=== PATIENT | male | born 1960 | race Caucasian/White ===

== ENCOUNTER 2016-02-24 09:30 | Emergency (ER) | payer OTHER ==
[~2016-02-24] VITALS: Ht 188 cm; Wt 120.0 kg
[~2016-02-24 09:30] MED LIST: AMIT50 PO; ASPI81TA82 PO; CHOL1CAP6 PO; EFFE150C PO; FERR324T4 PO; GABA300C3 PO; GLUC1000 PO; LANTUS2P SQ; MAGN400 PO; METO25 PO; NOVOLOGP2 SQ; PETR30T TOP; PROT40TA PO; ROBA750T3 PO; SIMV40 PO; WAL-10TA2 PO
[2016-02-24 09:31] VITALS: BP 139/73; PULSE 119; RESP 15; TEMP 98.1; O2SAT 98
--- NOTE | 2016-02-24 10:04 | PD ---
HPI Chief Complaint: Injury Time Seen by Provider: 09:57 Travel History International Travel<30 days: No Contact w/Intl Traveler<30days: No Traveled to known affect area: No History of Present Illness HPI 56-year-old male with history of multiple medical issues, presents to the ER today because he states that his leg gave out on him after he stood up after a long period of sitting, and he fell to his right knee, is here complaining of right knee pains. He denies any chest pains, shortness of breath, head injury, or any other injuries. He states that his right knee does hurt some now. Modifying Factors: None Associated Signs & Symptoms: Right knee injury Risk Factors: None PFSH Past Medical History Hx Anticoagulant Therapy: Yes (ASPIRIN) Anemia: Yes Arthritis: Yes Autoimmune Disease: No Blood Disorders: No Anxiety: No Depression: No Heart Rhythm Problems: Yes (A-fib ) Cancer: Yes (colon cancer- resection) Cardiac Catheterization: Yes (No stent placement ) Cardiovascular Problems: Yes High Cholesterol: Yes Chemotherapy: No Chest Pain: Yes Congestive Heart Failure: No Cerebrovascular Accident: No Cystic Fibrosis: No Diabetes: Yes Diminished Hearing: No Endocrine: Yes Genitourinary: No Hypertension: No Immune Disorder: No Implanted Vascular Access Dvce: No Insomnia: Yes Musculoskeletal: Yes (arthritis) Neurologic: No Psychiatric: No Reproductive: No Respiratory: Yes Integumentary: Yes (PSORIASIS) Radiation Therapy: No Sleep Apnea: Yes (CPAP uses nightly) Thyroid Disease: No Past Surgical History Abdominal Surgery: Yes (COLON RESECTION) Cardiac Surgery: Yes (cardiac cath no stents) Coronary Artery Bypass Graft: No Ear Surgery: No Endocrine Surgery: No Eye Surgery: No Genitourinary Surgery: No Oral Surgery: Yes (tonsillectomy) Thoracic Surgery: No Tonsillectomy: Yes Other Surgery: Yes (DEVIATED SEPTUM) Social History Alcohol Use: Yes (socially) Tobacco Use: No Substance Use: No Allergies-Medications (Allergen,Severity, Reaction): Coded Allergies: No Known Allergies (Unverified , 02/24/16) Reported Meds & Prescriptions Reported Meds & Active Scripts Active Reported Effexor XR 24 HR (Venlafaxine HCl) 150 Mg Cap 150 Mg PO DAILY Simvastatin 40 Mg Tab 40 Mg PO HS Protonix (Pantoprazole Sodium) 40 Mg Tab 40 Mg PO DAILY Metoprolol Tartrate 25 Mg Tab 25 Mg PO BID Magnesium Oxide 400 Mg Cap PO BID Metformin (Metformin HCl) 1,000 Mg Tab 1,000 Mg PO BID With meals Lantus Inj (Insulin Glargine) 100 Unit/Ml Inj Novolog Inj (Insulin Aspart) 100 Unit/Ml Inj Gabapentin 800 Mg Tab 900 Mg PO TID Ferrous Sulfate 325 Mg Tab 325 Mg PO BID Elavil (Amitriptyline HCl) 25 Mg Tab D3 (Cholecalciferol) 2,000 Unit Tab 3,000 PO DAILY Aspir-81 (Aspirin) 81 Mg Tabdr Review of Systems Except as stated in HPI: all other systems reviewed are Neg Physical Exam Narrative GENERAL: Well-nourished, well-developed middle age white male patient who walks with a cane, in no acute distress, awake and oriented 3. SKIN: Warm and dry. HEAD: Normocephalic. EYES: No scleral icterus. No injection or drainage. NECK: Supple, trachea midline. CARDIOVASCULAR: Regular rate and rhythm without murmurs, gallops, or rubs. RESPIRATORY: Breath sounds equal bilaterally. No accessory muscle use. GASTROINTESTINAL: Abdomen soft, non-tender, nondistended. MUSCULOSKELETAL: No cyanosis, or edema. BACK: Nontender without obvious deformity. No CVA tenderness. Right leg: Nontender to palpation, nontender range of motion of the knee, mild tenderness to palpation of the right mid femur area. Pelvis is stable and nontender to palpation. Nontender range of motion of the hips. Data Data Last Documented VS Vital Signs Date Time Temp Pulse Resp B/P Pulse Ox O2 Delivery O2 Flow Rate FiO2 02/24/16 11:34 100 17 123/69 98 Room Air 02/24/16 09:31 98.1 Orders Femur (Ap & Lat/2vws) (02/24/16 09:57) Acetamin-Hydrocod 325-5 Mg ([place] 5-325 (02/24/16 11:30) MDM Medical Decision Making Medical Screen Exam Complete: Yes Emergency Medical Condition: Yes Medical Record Reviewed: Yes Differential Diagnosis Fall, right knee injuryfractures versus contusions versus strain Narrative Course Patient had no point tenderness on evaluation, instead has some tenderness on palpation of the lower femur area. He has full range of motion of the right knee. X-rays of the femur did not reveal any signs of acute fractures or dislocations. Patient is weightbearing currently using a cane. At this point, my plan would be to place him in a knee splint and have him decrease weightbearing on that right side and have him follow-up with primary care physician. Occult fractures can be missed with x-rays and I have talked to the patient regarding this as well. He should return for any worsening in pain or new symptoms. The plan has been discussed with him and he states understanding. Diagnosis Primary Impression: Strain of knee and leg, right Med/Other Pt SpecificInfo: Prescription(s) given Scripts Hydrocodone-Acetaminophen (Lortab)5-325 Mg Tab1 Tab PO Q4H PRN (PAIN) #15 TAB Ref 0 Prov:Annette Montes MD 02/24/16 Disposition: 01 DISCHARGE HOME Condition: Stable Annette Montes MD Feb 24, 2016 10:04
[2016-02-24] MEDS ORDERED: FERR325T PO (10:18)
[2016-02-24] MEDS ORDERED: LANTUS2P SQ (10:18)
[2016-02-24] MEDS ORDERED: ASPI81TA81 (10:18)
[2016-02-24] MEDS ORDERED: PROT40TA PO (10:18)
[2016-02-24] MEDS ORDERED: D32000TA PO (10:18)
[2016-02-24] MEDS ORDERED: AMIT1TAB79 (10:18)
[2016-02-24] MEDS ORDERED: GABA800T PO (10:18)
[2016-02-24] MEDS ORDERED: MAGN400C PO (10:18)
[2016-02-24] MEDS ORDERED: METF1000 PO (10:18)
[2016-02-24] MEDS ORDERED: METO25TA3 PO (10:18)
[2016-02-24] MEDS ORDERED: NOVOLOGSS SQ (10:18)
[2016-02-24] MEDS ORDERED: SIMV40TA PO (10:25)
[2016-02-24] MEDS ORDERED: EFFE150C PO (10:27)
[2016-02-24] MEDS ORDERED: ACETAMINOPHEN/HYDROcodone 325 MG/5 MG TAB PO ONE (11:30)
[2016-02-24 11:34] VITALS: BP 123/69; PULSE 100; RESP 17; O2SAT 98
--- NOTE | 2016-02-24 11:46 | RADRPT ---
EXAM DATE/TIME: 02/24/2016 10:24 [facility] COMPARISON: No previous studies available for comparison. INDICATIONS : Right femur pain after fall. MEDICAL HISTORY : None. SURGICAL HISTORY : None. ENCOUNTER: Initial ACUITY: 2 weeks PAIN SCORE: 7/10 LOCATION: Right femur. FINDINGS: Two view examination of the right femur demonstrates no evidence of fracture or dislocation. Bony mi neralization is normal. The soft tissue structures are intact. CONCLUSION: No acute disease. Dewey Preston MD on February 24, 2016 at 11:44 Board Certified Radiologist. This report was verified electronically.
[2016-02-24] MEDS ORDERED: HYDR-3533 PO (11:57)
== END 2016-02-24 12:36 | disposition home or self-care (01) ==
LOC: NEPC 09:30
DX: S86.911A Strain of unspecified muscle(s) and tendon(s) at lower leg level, right leg, initial encounter (principal); M19.90 Unspecified osteoarthritis, unspecified site; I48.91 Unspecified atrial fibrillation; G47.30 Sleep apnea, unspecified; Z79.82 Long term (current) use of aspirin; W18.30XA Fall on same level, unspecified, initial encounter
CPT/HCPCS: 73552; 99283; L1830

== ENCOUNTER 2016-03-14 18:29 | Emergency (ER) | payer OTHER ==
[~2016-03-14] VITALS: Ht 188 cm; Wt 115.0 kg
[~2016-03-14 18:29] MED LIST changes: +AMIT1TAB79; -AMIT50 PO; +ASPI81TA81; -ASPI81TA82 PO; -CHOL1CAP6 PO; +D32000TA PO; -FERR324T4 PO; +FERR325T PO; -GABA300C3 PO; +GABA800T PO; -GLUC1000 PO; +HYDR-3533 PO; -MAGN400 PO; +MAGN400C PO; +METF1000 PO; -METO25 PO; +METO25TA3 PO; -NOVOLOGP2 SQ; +NOVOLOGSS SQ; -PETR30T TOP; -ROBA750T3 PO; -SIMV40 PO; +SIMV40TA PO; -WAL-10TA2 PO
[2016-03-14 18:31] VITALS: BP 144/78; PULSE 107; RESP 24; TEMP 97.3; O2SAT 95
--- NOTE | 2016-03-14 18:46 | PD ---
HPI Chief Complaint: Hip Injury Time Seen by Provider: 18:46 Travel History International Travel<30 days: No Contact w/Intl Traveler<30days: No Traveled to known affect area: No History of Present Illness HPI 56-year-old male with history of diabetes, CAD, presents to emergency department for evaluation right hip pain following a trip and fall. Patient states likely been a horrible when he got "caught up" in the table and fell landing on his right hip. He was able to get himself up and having significant right hip pain since. He's been able to weight-bear on the right lower extremity. Pain is an 8 out of 10. He did not hit his head or lose consciousness. Denies any chest keratitis. No difficulty breathing. No other symptoms to report. PFSH Past Medical History Hx Anticoagulant Therapy: Yes (ASPIRIN) Anemia: Yes Arthritis: Yes Autoimmune Disease: No Blood Disorders: No Anxiety: No Depression: No Heart Rhythm Problems: Yes (A-fib ) Cancer: Yes (colon cancer- resection) Cardiac Catheterization: Yes Cardiovascular Problems: Yes High Cholesterol: Yes Chemotherapy: No Chest Pain: Yes Congestive Heart Failure: No Cerebrovascular Accident: No Cystic Fibrosis: No Diabetes: Yes Patient Takes Glucophage: Yes Diminished Hearing: No Endocrine: Yes Genitourinary: No Heparin Induced Thrombocytopen: No Hypertension: No Immune Disorder: No Implanted Vascular Access Dvce: No Insomnia: Yes Musculoskeletal: Yes (arthritis) Neurologic: No Psychiatric: No Reproductive: No Respiratory: Yes Integumentary: Yes (PSORIASIS) Radiation Therapy: No Sleep Apnea: Yes (CPAP uses nightly) Thyroid Disease: No Past Surgical History Abdominal Surgery: Yes (COLON RESECTION) Cardiac Surgery: Yes (cardiac cath no stents) Coronary Artery Bypass Graft: No Ear Surgery: No Endocrine Surgery: No Eye Surgery: No Genitourinary Surgery: No Neurologic Surgery: No Oral Surgery: Yes (tonsillectomy) Thoracic Surgery: No Tonsillectomy: Yes Other Surgery: Yes (DEVIATED SEPTUM) Family History Family Myocardial Infarction: Yes Social History Alcohol Use: No Tobacco Use: No Substance Use: No Allergies-Medications (Allergen,Severity, Reaction): Coded Allergies: No Known Allergies (Unverified , 02/24/16) Reported Meds & Prescriptions Reported Meds & Active Scripts Active Reported Effexor XR 24 HR (Venlafaxine HCl) 150 Mg Cap 150 Mg PO DAILY Simvastatin 40 Mg Tab 40 Mg PO HS Protonix (Pantoprazole Sodium) 40 Mg Tab 40 Mg PO DAILY Metoprolol Tartrate 25 Mg Tab 25 Mg PO BID Magnesium Oxide 400 Mg Cap PO BID Metformin (Metformin HCl) 1,000 Mg Tab 1,000 Mg PO BID With meals Lantus Inj (Insulin Glargine) 100 Unit/Ml Inj Novolog Inj (Insulin Aspart) 100 Unit/Ml Inj Gabapentin 800 Mg Tab 900 Mg PO TID Ferrous Sulfate 325 Mg Tab 325 Mg PO BID Elavil (Amitriptyline HCl) 25 Mg Tab D3 (Cholecalciferol) 2,000 Unit Tab 3,000 PO DAILY Aspir-81 (Aspirin) 81 Mg Tabdr Review of Systems Except as stated in HPI: all other systems reviewed are Neg Physical Exam Narrative GENERAL: Well-nourished male patient, lying in bed, in no acute distress SKIN: Warm and dry. HEAD: Atraumatic. Normocephalic. EYES: Pupils equal and round. No scleral icterus. No injection or drainage. ENT: No nasal bleeding or discharge. Mucous membranes pink and moist. NECK: Trachea midline. No JVD. CARDIOVASCULAR: Regular rate and rhythm. No murmur appreciated. RESPIRATORY: No accessory muscle use. Clear to auscultation. Breath sounds equal bilaterally. GASTROINTESTINAL: Abdomen soft, non-tender, nondistended. Hepatic and splenic margins not palpable. MUSCULOSKELETAL: No obvious deformities. No clubbing. No cyanosis. No edema. Tenderness with palpation over the posterior lateral aspect of right hip. No deformity. No shortening of the affected extremity. Distal pulses are palpable. NEUROLOGICAL: Awake and alert. No obvious cranial nerve deficits. Motor grossly within normal limits. Normal speech. PSYCHIATRIC: Appropriate mood and affect; insight and judgment normal. Data Data Last Documented VS Vital Signs Date Time Temp Pulse Resp B/P Pulse Ox O2 Delivery O2 Flow Rate FiO2 03/14/16 18:31 97.3 107 24 144/78 95 Room Air Orders Hip, Uni(Ap&Lat) W Ap Pelvis (03/14/16 ) Iv Access Insert/Monitor (03/14/16 18:45) Complete Blood Count With Diff (03/14/16 18:45) Basic Metabolic Panel (Bmp) (03/14/16 18:45) Coag Profile (03/14/16 18:45) Electrocardiogram (03/14/16 ) Ketorolac Inj (Toradol Inj) (03/14/16 19:30) Labs Laboratory Tests Test 03/14/16 18:50 White Blood Count 5.5 TH/MM3 Red Blood Count 4.76 MIL/MM3 Hemoglobin 14.4 GM/DL Hematocrit 42.5 % Mean Corpuscular Volume 89.4 FL Mean Corpuscular Hemoglobin 30.2 PG Mean Corpuscular Hemoglobin 33.8 % Concent Red Cell Distribution Width 15.2 % Platelet Count 104 TH/MM3 Mean Platelet Volume 7.5 FL Neutrophils (%) (Auto) 53.4 % Lymphocytes (%) (Auto) 31.8 % Monocytes (%) (Auto) 10.2 % Eosinophils (%) (Auto) 3.5 % Basophils (%) (Auto) 1.1 % Neutrophils # (Auto) 2.9 TH/MM3 Lymphocytes # (Auto) 1.7 TH/MM3 Monocytes # (Auto) 0.6 TH/MM3 Eosinophils # (Auto) 0.2 TH/MM3 Basophils # (Auto) 0.1 TH/MM3 CBC Comment DIFF FINAL Differential Comment Prothrombin Time 11.4 SEC Prothromb Time International 1.0 RATIO Ratio Activated Partial 27.1 SEC Thromboplast Time Sodium Level 134 MEQ/L Potassium Level 3.9 MEQ/L Chloride Level 100 MEQ/L Carbon Dioxide Level 26.7 MEQ/L Anion Gap 7 MEQ/L Blood Urea Nitrogen 13 MG/DL Creatinine 0.98 MG/DL Estimat Glomerular Filtration 79 ML/MIN Rate Random Glucose 268 MG/DL Calcium Level 8.8 MG/DL MDM Medical Decision Making Medical Screen Exam Complete: Yes Emergency Medical Condition: Yes Medical Record Reviewed: Yes Differential Diagnosis Fracture versus sprain versus contusion versus dislocation Narrative Course 56-year-old male presents to emergency department for evaluation of right hip pain. Patient appears without distress. There is no deformity of the right lower extremity and it is neurovascularly intact. X-ray imaging is without acute bony abnormality. Lab work is ordered. EKG is without acute concern. No ST elevation or depression. This reviewed by my attending physician. CBC confirmed. BMP is with hyperglycemia 269 otherwise without acute concern. X- ray of the right hip is without acute bony abnormality. I have discussed the patient with my attending physician who has also assessed the patient. Patient is ambulatory in the emergency department. He'll be discharged to follow-up with primary care provider and return immediately with any acute worsening of symptoms.. Diagnosis Primary Impression: Hip pain, right Referrals: Orthopaedic Surgeon Primary Care Physician Patient Instructions: General Instructions, Hip Pain (ED) Additional Instructions: Ice and/or warm moist heat may help to alleviate symptoms Follow-up with primary care provider Return immediately with any acute worsening of symptoms Med/Other Pt SpecificInfo: Prescription(s) given Scripts Naproxen (Naprosyn)500 Mg Tdt058 Mg PO BID PRN (PAIN SCALE 1 TO 10) #30 TAB Ref 0 Prov:Carin Gamble 03/14/16 Disposition: 01 DISCHARGE HOME Condition: Stable Carin Gamble Mar 14, 2016 18:46
[2016-03-14 19:07] LABS: AUTOMATED NEUTROPHIL # 2.9 TH/MM3 (1.8-7.7); BASOPHIL # 0.1 TH/MM3 (0-0.2); BASOPHIL % 1.1 % (0.0-2.0); EOSINOPHIL # 0.2 TH/MM3 (0-0.4); EOSINOPHIL % 3.5 % (0.0-4.0); HEMATOCRIT 42.5 % (39.0-51.0); HEMO FLAGS DIFF FINAL; LYMPH % 31.8 % (9.0-44.0); LYMPHOCYTE # 1.7 TH/MM3 (1.0-4.8); MEAN CELL VOLUME 89.4 FL (80.0-100.0); MEAN CORPUSCULAR HEMOGLOBIN 30.2 PG (27.0-34.0); MEAN CORPUSCULAR HGB CONC 33.8 % (32.0-36.0); MONO % 10.2 % (0.0-8.0); NEUT % 53.4 % (16.0-70.0); PLATELET COUNT 104 TH/MM3 (150-450); RED BLOOD COUNT 4.76 MIL/MM3 (4.50-5.90); RED CELL DISTRIBUTION WIDTH 15.2 % (11.6-17.2); WHITE BLOOD COUNT 5.5 TH/MM3 (4.0-11.0)
[2016-03-14 19:15] LABS: APTT (PATIENT) 27.1 SEC (24.3-30.1); PROTHROMBIN TIME - PATIENT 11.4 SEC (9.8-11.6)
--- NOTE | 2016-03-14 19:15 | RADRPT ---
EXAM DATE/TIME: 03/14/2016 18:56 [facility] COMPARISON: No previous studies available for comparison. INDICATIONS : Right hip pain post fall onto right side today MEDICAL HISTORY : None. SURGICAL HISTORY : None. ENCOUNTER: Initial ACUITY: 1 day PAIN SCORE: 10/10 LOCATION: Right entire hip FINDINGS: Examination of the right hip was performed with AP Pelvis. The primary and secondary trabecular claudine rose mary of the femoral neck is intact. The hip joint is of normal width without significant sclerosis or bony hypertrophy. The acetabulum is grossly intact. CONCLUSION: No evidence of recent bony injury. Rey Mann MD on March 14, 2016 at 19:14 Board Certified Radiologist. This report was verified electronically.
[2016-03-14] MEDS ORDERED: KETOROLAC TROMETHAMINE 30 MG/ML (IVP) VIAL IV PUSH ONE (19:30)
[2016-03-14 19:32] LABS: BICARBONATE 26.7 MEQ/L (21.0-32.0); POTASSIUM 3.9 MEQ/L (3.5-5.1)
[2016-03-14] MEDS ORDERED: NAPR500 PO (19:44)
--- NOTE | 2016-03-15 13:20 | EKG ---
Date Performed: 03/14/2016 Time Performed: 19:25:47 PTAGE: 56 years EKG: Sinus rhythm NONSPECIFIC T-WAVE ABNORMALITY BORDERLINE ECG Compared to prior tracing no significant change PREVIOUS TRACING : 12/03/2015 08.56 DOCTOR: Erick Cheng Interpretating Date/Time 03/15/2016 13:15:58
== END 2016-03-14 20:19 | disposition home or self-care (01) ==
LOC: NEPA 18:29
DX: M25.551 Pain in right hip (principal); E11.65 Type 2 diabetes mellitus with hyperglycemia; R94.31 Abnormal electrocardiogram [ECG] [EKG]; E78.00 Pure hypercholesterolemia, unspecified; G47.30 Sleep apnea, unspecified; Z79.82 Long term (current) use of aspirin; Z79.84 Long term (current) use of oral hypoglycemic drugs; Z86.2 Personal history of diseases of the blood and blood-forming organs and certain disorders involving the immune mechanism; Z87.39 Personal history of other diseases of the musculoskeletal system and connective tissue; Z86.79 Personal history of other diseases of the circulatory system; Z85.038 Personal history of other malignant neoplasm of large intestine; Z87.09 Personal history of other diseases of the respiratory system; Z87.2 Personal history of diseases of the skin and subcutaneous tissue; W01.0XXA Fall on same level from slipping, tripping and stumbling without subsequent striking against object, initial encounter
CPT/HCPCS: 73502; 80048; 85025; 85610; 85730; 93005; 96374; 99284; J1885

== ENCOUNTER 2016-07-27 16:10 | Emergency (ER) | payer OTHER ==
[~2016-07-27] VITALS: Ht 188 cm; Wt 110.0 kg
[~2016-07-27 16:10] MED LIST changes: -HYDR-3533 PO; +NAPR500 PO
[2016-07-27 16:11] VITALS: BP 141/80; PULSE 112; RESP 18; TEMP 97.8; O2SAT 94
--- NOTE | 2016-07-27 17:00 | PD ---
HPI Chief Complaint: Pain: Acute or Chronic Time Seen by Provider: 17:00 Travel History International Travel<30 days: No Contact w/Intl Traveler<30days: No Traveled to known affect area: No History of Present Illness HPI 56-year-old male presents to emergency Department with complaints of burning pain from the knee to the groin for the past several days. Patient denies any specific rash. He does have a history of lower back pain and sciatica in the past but he feels this is somewhat different. Patient has felt somewhat feverish in the last several days as well. He denies bowel or bladder trouble. He denies weakness, tingling, or history of injury. He states it does not affect his ability to ambulate. He states he feels like the skin itself is burning. He has no known drug allergies. PFSH Past Medical History Hx Anticoagulant Therapy: Yes (81 ASPIRIN) Anemia: Yes Arthritis: Yes Autoimmune Disease: No Blood Disorders: No Anxiety: No Depression: No Heart Rhythm Problems: Yes (A-fib ) Cancer: Yes (colon cancer- resection) Cardiac Catheterization: Yes Cardiovascular Problems: Yes High Cholesterol: Yes Chemotherapy: No Chest Pain: Yes Congestive Heart Failure: No Cerebrovascular Accident: No Cystic Fibrosis: No Diabetes: Yes Patient Takes Glucophage: No Diminished Hearing: No Endocrine: Yes Gastrointestinal Disorders: Yes (COLON CA) Genitourinary: No Heparin Induced Thrombocytopen: No Hypertension: No Immune Disorder: No Implanted Vascular Access Dvce: No Insomnia: Yes Musculoskeletal: Yes (arthritis) Neurologic: No Psychiatric: No Reproductive: No Respiratory: Yes (SLEEP APNEA) Integumentary: Yes (PSORIASIS) Radiation Therapy: No Sleep Apnea: Yes (CPAP uses nightly) Thyroid Disease: No Influenza Vaccination: Yes Past Surgical History Abdominal Surgery: Yes (COLON RESECTION) Cardiac Surgery: Yes (cardiac cath no stents) Ear Surgery: No Endocrine Surgery: No Eye Surgery: No Genitourinary Surgery: No Neurologic Surgery: No Oral Surgery: Yes (tonsillectomy) Thoracic Surgery: No Tonsillectomy: Yes Other Surgery: Yes (DEVIATED SEPTUM) Family History Family Myocardial Infarction: Yes Social History Alcohol Use: No Tobacco Use: No Substance Use: No Allergies-Medications (Allergen,Severity, Reaction): Coded Allergies: No Known Allergies (Unverified , 02/24/16) Reported Meds & Prescriptions Reported Meds & Active Scripts Active Reported Effexor XR 24 HR (Venlafaxine HCl) 150 Mg Cap 150 Mg PO DAILY Simvastatin 40 Mg Tab 40 Mg PO HS Protonix (Pantoprazole Sodium) 40 Mg Tab 40 Mg PO DAILY Metoprolol Tartrate 25 Mg Tab 25 Mg PO BID Magnesium Oxide 400 Mg Cap PO BID Metformin (Metformin HCl) 1,000 Mg Tab 1,000 Mg PO BID With meals Lantus Inj (Insulin Glargine) 100 Unit/Ml Inj 100 Units SQ BID Novolog Inj (Insulin Aspart) 100 Unit/Ml Inj 20 Units SQ BIDAC D3 (Cholecalciferol) 2,000 Unit Tab 3,000 PO DAILY Aspir-81 (Aspirin) 81 Mg Tabdr Review of Systems Except as stated in HPI: all other systems reviewed are Neg General / Constitutional: No: Fever Eyes: No: Visual changes HENT: No: Headaches Cardiovascular: No: Chest Pain or Discomfort Respiratory: No: Shortness of Breath Gastrointestinal: No: Abdominal Pain Genitourinary: No: Dysuria Musculoskeletal: No: Pain Skin: No Rash Neurologic: No: Weakness Psychiatric: No: Depression Endocrine: No: Polydipsia Hematologic/Lymphatic: No: Easy Bruising Physical Exam Narrative GENERAL: Patient is in no acute distress. SKIN: Warm and dry. Normal color. Normal turgor. No signs of rash. Patient complains of tenderness with light touch to the medial left thigh. HEAD: Atraumatic. Normocephalic. EYES: Pupils equal and round. No scleral icterus. No injection or drainage. ENT: No nasal bleeding or discharge. Mucous membranes pink and moist. NECK: Trachea midline. No JVD. CARDIOVASCULAR: Regular rate and rhythm. RESPIRATORY: No accessory muscle use. Clear to auscultation. Breath sounds equal bilaterally. GASTROINTESTINAL: Abdomen soft, non-tender, nondistended. Hepatic and splenic margins not palpable. MUSCULOSKELETAL: Extremities without clubbing, cyanosis, or edema. No obvious deformities. No increased pain with straight leg raise or hip maneuvers on the left. NEUROLOGICAL: Awake and alert. No obvious cranial nerve deficits. Motor grossly within normal limits. Five out of 5 muscle strength in the arms and legs. Normal speech. PSYCHIATRIC: Appropriate mood and affect; insight and judgment normal. Data Data Last Documented VS Vital Signs Date Time Temp Pulse Resp B/P Pulse Ox O2 Delivery O2 Flow Rate FiO2 07/27/16 16:11 97.8 112 18 141/80 94 [facility] Medical Decision Making Medical Screen Exam Complete: Yes Emergency Medical Condition: Yes Differential Diagnosis Neuralgia. Possible early shingles without rash. Sciatica. Narrative Course Patient is medically stable at time of exam. Patient will be treated with Valtrex 1000 mg 3 times a day 7 days. Patient also started on gabapentin 100 mg 3 times a day #90. Patient can take Tylenol and ibuprofen as well as needed. Patient is to follow with his primary care physician as discussed or return to emergency Department with worsening symptoms as needed. Diagnosis Primary Impression: Neuralgia Additional Impression: Thigh shingles Patient Instructions: General Instructions, Shingles (ED) Additional Instructions: Patient will be treated with Valtrex 1000 mg 3 times a day 7 days. Patient also started on gabapentin 100 mg 3 times a day #90. Patient can take Tylenol and ibuprofen as well as needed. Patient is to follow with his primary care physician as discussed or return to emergency Department with worsening symptoms as needed. Med/Other Pt SpecificInfo: Prescription(s) given Disposition: DISCHARGE HOME Condition: Stable Ozzie Courtney Jul 27, 2016 17:00
[2016-07-27] MEDS ORDERED: GABA100C4 PO (17:15)
[2016-07-27] MEDS ORDERED: VALA1TAB PO (17:15)
== END 2016-07-27 17:44 | disposition home or self-care (01) ==
LOC: NEPK 16:10
DX: M79.2 Neuralgia and neuritis, unspecified (principal); B02.9 Zoster without complications; E11.9 Type 2 diabetes mellitus without complications; E78.00 Pure hypercholesterolemia, unspecified; I48.91 Unspecified atrial fibrillation; G47.30 Sleep apnea, unspecified; L40.9 Psoriasis, unspecified; Z79.4 Long term (current) use of insulin
CPT/HCPCS: 99284

== ENCOUNTER 2016-10-12 20:36 | Emergency (ER) | payer OTHER ==
[~2016-10-12 20:36] MED LIST changes: -AMIT1TAB79; -FERR325T PO; +GABA100C4 PO; -GABA800T PO; -NAPR500 PO; +VALA1TAB PO
[2016-10-12 20:37] VITALS: BP 140/73; PULSE 120; RESP 16; TEMP 98.8; O2SAT 95
[2016-10-12 21:42] VITALS: PULSE 114
[2016-10-12] MEDS ORDERED: KETOROLAC TROMETHAMINE 30 MG/ML (IVP) VIAL IV PUSH ONE (22:30)
--- NOTE | 2016-10-12 22:38 | PD ---
HPI Chief Complaint: Skin Problem Time Seen by Provider: 22:05 Travel History International Travel<30 days: No Contact w/Intl Traveler<30days: No Traveled to known affect area: No History of Present Illness HPI The patient is a 56 year old male who presents to the [facility] emergency department with a history of bilateral lower extremity pain that he reports began a month ago. The patient reports that he has a burning sensation in the anterior thighs in all the lateral aspect of both thighs. The patient reports that he does have a history of burning sensations in his feet that it been diagnosed with neuropathy. He was previously on gabapentin, however. Working approximately a year ago and he was placed on Lyrica. The patient has a history of diabetes mellitus. He reports that his last blood sugar was done in the afternoon and was noted to be 279. He reports that this is improving compared to his prior blood sugar levels. He reports that he is on insulin. His primary care physician is through the [facility]. He denies having any new or worsening back pain. He does have a history of chronic back pain related to osteoarthritis, rheumatoid arthritis, and psoriatic arthritis. He denies having any loss of bowel or bladder control. He denies having any fevers, unexplained weight loss, or night sweats. On review of systems otherwise, the patient denies any cough, congestion, neck pain, chest pain, shortness of breath, abdominal pain, vomiting, diarrhea, urinary symptoms, or neurologic symptoms. [facility] Past Medical History Narrative Medical The patient's past medical history is significant for coronary artery disease that is mild to moderate in 3 vessels on cardiac catheterization done in July 2014 without any instrumentation, history of diabetes mellitus, acid reflux, hypertension, hyperlipidemia, diabetic neuropathy, atrial flutter, psoriatic arthritis, rheumatoid arthritis, osteoarthritis, chronic back pain, sleep apnea on CPAP. Hx Anticoagulant Therapy: Yes (aspirn) Anemia: Yes Arthritis: Yes Autoimmune Disease: No Blood Disorders: No Anxiety: No Depression: No Heart Rhythm Problems: Yes (A-fib ) Cancer: Yes (colon cancer- resection) Cardiac Catheterization: Yes Cardiovascular Problems: Yes High Cholesterol: Yes Chemotherapy: No Chest Pain: Yes Congestive Heart Failure: No Cerebrovascular Accident: No Cystic Fibrosis: No Diabetes: Yes Patient Takes Glucophage: Yes Diminished Hearing: No Endocrine: Yes Gastrointestinal Disorders: Yes (COLON CA) Genitourinary: No Heparin Induced Thrombocytopen: No Hypertension: No Immune Disorder: No Implanted Vascular Access Dvce: No Insomnia: Yes Musculoskeletal: Yes (arthritis) Neurologic: No Psychiatric: No Reproductive: No Respiratory: Yes (SLEEP APNEA) Integumentary: Yes (PSORIASIS) Radiation Therapy: No Sleep Apnea: Yes (CPAP uses nightly) Thyroid Disease: No Past Surgical History Narrative Surgical The patient's past surgical history is significant for cardiac catheterization without intervention in 2014, history of partial colon resection related to colon cancer in 1999 without any chemotherapy or radiation therapy to follow, tonsillectomy, deviated septum repair. Abdominal Surgery: Yes (COLON RESECTION) Cardiac Surgery: Yes (cardiac cath no stents) Ear Surgery: No Endocrine Surgery: No Eye Surgery: No Genitourinary Surgery: No Neurologic Surgery: No Oral Surgery: Yes (tonsillectomy) Thoracic Surgery: No Tonsillectomy: Yes Other Surgery: Yes (DEVIATED SEPTUM) Family History Family Myocardial Infarction: Yes Social History Alcohol Use: No Tobacco Use: No Substance Use: No Allergies-Medications (Allergen,Severity, Reaction): Coded Allergies: No Known Allergies (Unverified , 10/12/16) Reported Meds & Prescriptions Reported Meds & Active Scripts Active Valacyclovir (Valacyclovir HCl) 1 Gm Tab 1,000 Mg PO TID Reported Effexor XR 24 HR (Venlafaxine HCl) 150 Mg Cap 150 Mg PO DAILY Simvastatin 40 Mg Tab 40 Mg PO HS Protonix (Pantoprazole Sodium) 40 Mg Tab 40 Mg PO DAILY Metoprolol Tartrate 25 Mg Tab 25 Mg PO BID Magnesium Oxide 400 Mg Cap PO BID Metformin (Metformin HCl) 1,000 Mg Tab 1,000 Mg PO BID With meals Lantus Inj (Insulin Glargine) 100 Unit/Ml Inj 100 Units SQ BID Novolog Inj (Insulin Aspart) 100 Unit/Ml Inj 20 Units SQ BIDAC D3 (Cholecalciferol) 2,000 Unit Tab 3,000 PO DAILY Aspir-81 (Aspirin) 81 Mg Tabdr Review of Systems Except as stated in HPI: all other systems reviewed are Neg General / Constitutional: No: Fever Eyes: No: Visual changes HENT: No: Headaches, Rhinorrhea, Congestion Cardiovascular: No: Chest Pain or Discomfort, Dyspnea on exertion Respiratory: No: Shortness of Breath Gastrointestinal: No: Nausea, Vomiting, Diarrhea, Abdominal Pain Genitourinary: No: Dysuria Musculoskeletal: No: Pain Skin: No Rash Neurologic: Positive: Paresthesia, No: Weakness, Focal Abnormalities, Change in Mentation, Slurred Speech, Sensory Disturbance Psychiatric: No: Depression Endocrine: No: Polydipsia Hematologic/Lymphatic: No: Easy Bruising Physical Exam Narrative General: The patient is a well-developed well-nourished male in no acute distress. Head and Neck exam: Head is normocephalic atraumatic. Eyes: EOMI, pupils are equal round and reactive to light. Nose: Midline septum with pink mucous membranes Mouth: Dentition unremarkable. Moist mucus membranes. Posterior oropharynx is not erythematous. No tonsillar hypertrophy. Uvula midline. Airway patent. Neck: No palpable lymphadenopathy. No nuchal rigidity. No thyromegaly. Cardiovascular: Tachycardia in the 1 teens without murmurs, gallops, or rubs. No pulse deficit to the extremities and simultaneous auscultation and palpation of his radial artery. Lungs: Clear to auscultation bilaterally. No wheezes, rhonchi, or rales. Abdomen: Soft, without tenderness to palpation in all 4 quadrants of the abdomen. No guarding, rebound, or rigidity. Normal bowel sounds are audible. No tenderness on palpation of McBurney's point. Extremities: No clubbing, cyanosis, or edema. 2+ pulses in all 4 extremities. No calf tenderness on palpation. The patient has hyperesthesia noted on palpation superficially along the anterior thighs. There is no skin abnormality associated with this. He has no swelling, warmth, or erythema noted. Negative Homans sign. No palpable cords. Back: No spinous process tenderness to palpation. No costovertebral angle tenderness to palpation. Neurologic Exam: Grossly nonfocal. Skin Exam: No rash noted. Intact skin that is warm and dry. Data Data Last Documented VS Vital Signs Date Time Temp Pulse Resp B/P (MAP) Pulse Ox O2 Delivery O2 Flow Rate FiO2 10/12/16 23:21 101 18 126/72 (90) 95 Room Air 10/12/16 20:37 98.8 Orders Orders Complete Blood Count With Diff (10/12/16 22:23) Basic Metabolic Panel (Bmp) (10/12/16 22:23) Creatine Kinase (Cpk) (10/12/16 22:23) Urinalysis - C+S If Indicated (10/12/16 22:23) Westergren Sedimentation Rate (10/12/16 22:23) Magnesium (Mg) (10/12/16 22:23) Iv Access Insert/Monitor (10/12/16 22:23) Ecg Monitoring (10/12/16 22:23) Oximetry (10/12/16 22:23) Ketorolac Inj (Toradol Inj) (10/12/16 22:30) CKMB (10/12/16 23:00) CKMB% (10/12/16 23:00) Labs Laboratory Tests Test 10/12/16 23:00 White Blood Count 7.2 TH/MM3 Red Blood Count 4.87 MIL/MM3 Hemoglobin 14.6 GM/DL Hematocrit 42.7 % Mean Corpuscular Volume 87.7 FL Mean Corpuscular Hemoglobin 30.0 PG Mean Corpuscular Hemoglobin Concent 34.2 % Red Cell Distribution Width 14.7 % Platelet Count 133 TH/MM3 Mean Platelet Volume 7.0 FL Neutrophils (%) (Auto) 59.7 % Lymphocytes (%) (Auto) 26.5 % Monocytes (%) (Auto) 9.9 % Eosinophils (%) (Auto) 2.9 % Basophils (%) (Auto) 1.0 % Neutrophils # (Auto) 4.3 TH/MM3 Lymphocytes # (Auto) 1.9 TH/MM3 Monocytes # (Auto) 0.7 TH/MM3 Eosinophils # (Auto) 0.2 TH/MM3 Basophils # (Auto) 0.1 TH/MM3 CBC Comment DIFF FINAL Differential Comment Erythrocyte Sedimentation Rate 37 mm/hr Urine Color YELLOW Urine Turbidity HAZY Urine pH 5.5 Urine Specific [place] 1.033 Urine Protein TRACE mg/dL Urine Glucose (UA) 1000 mg/dL Urine Ketones TRACE mg/dL Urine Occult Blood NEG Urine Nitrite NEG Urine Bilirubin NEG Urine Urobilinogen LESS THAN 2.0 MG/DL Urine Leukocyte Esterase NEG Urine RBC 1 /hpf Urine WBC 3 /hpf Urine Squamous Epithelial Cells 6 /hpf Urine Transitional Epithelial Cells <1 /hpf Urine Renal Epithelial Cells <1 /hpf Urine Mucus FEW /lpf Microscopic Urinalysis Comment CULT NOT INDICATED Blood Urea Nitrogen 18 MG/DL Creatinine 0.91 MG/DL Random Glucose 197 MG/DL Calcium Level 8.7 MG/DL Magnesium Level 1.9 MG/DL Sodium Level 138 MEQ/L Potassium Level 3.9 MEQ/L Chloride Level 103 MEQ/L Carbon Dioxide Level 25.1 MEQ/L Anion Gap 10 MEQ/L Estimat Glomerular Filtration Rate 86 ML/MIN Total Creatine Kinase 319 U/L Creatine Kinase MB 5.2 NG/ML Creatine Kinase MB % 1.6 % MDM Medical Decision Making Medical Screen Exam Complete: Yes Emergency Medical Condition: Yes Medical Record Reviewed: Yes Differential Diagnosis Peripheral neuropathy, versus electrolyte derangements with associated muscle pain, versus rhabdomyolysis, versus polymyositis, versus sciatica Narrative Course During the course of the patients emergency department visit, the patients history, examination, and differential diagnosis were reviewed with the patient. The patient had IV access obtained and blood work sent for analysis. The patient was placed on a tech ed/woodshop teacher with oximetry and blood pressure monitoring. From reviewing [employer] on this patient, the patient was recently changed from Lyrica 75 mg twice a day to Lyrica 100 mg twice a day on October 09. The patient on arrival was unsure of the dose of his medications. We did discuss the fact that if he is tolerating the increased dose over the next week it could be increased again to a maximum dose of 100 mg 3 times a day. He would need to discuss this change with his [place] primary care physician. The patient has not had any recent prescriptions for narcotics. The patient was initially provided Toradol 15 mg IV 1 for pain. The patients laboratory studies were reviewed and remarkable for a white count of 7.2, hemoglobin 14.6, platelets 133 with 9.9 monocytes, sedimentation rate is slightly elevated at 37, CMP is remarkable for a glucose of 197, CPK is 319 with a normal MB percent. Urinalysis shows without glucose trace ketones otherwise unremarkable. I suspect that the patient's symptoms are related to an exacerbation of his neuropathy due to poor control of his diabetes mellitus. We did discuss the fact that he could after a week have his Lyrica increased to the maximum dose for neuropathy of 100 mg 3 times a day. I recommended that he discuss this further with his primary care physician. In the meantime, he is instructed to take Lortab as needed for discomfort, and so the one week period of time when he could increase the dose. The patient is resting comfortably and feels better, is alert and in no distress. The patients results and examination findings were discussed with the patient. The repeat examination is unremarkable and benign. The history, exam, diagnostic testing, and current condition do not suggest any significant pathology to warrant further testing, continued ED treatment, admission, or surgical evaluation at this point. The vital signs have been stable. The patient does not have uncontrollable pain, intractable vomiting, or other significant symptoms. The patient's condition is stable and appropriate for discharge. The patient will pursue further outpatient evaluation with a primary care physician or other designated or consulting physician as indicated in the discharge instructions. The patient expressed understanding and was agreeable with this plan. Diagnosis Primary Impression: Diabetic neuropathy Qualified Codes: E11.49 - Type 2 diabetes mellitus with other diabetic neurological complication Referrals: Primary Care Physician 2 days Patient Instructions: Diabetic Peripheral Neuropathy (ED), General Instructions Additional Instructions: Follow-up with your [facility] doctor to discuss increasing the Lyrica dose from 100 mg twice daily to 100 mg 3 times per day. Med/Other Pt SpecificInfo: Prescription(s) given Scripts Hydrocodone-Acetaminophen (Lortab) 5-325 Mg Tab 1 TAB PO Q6H Y for PAIN, #12 TAB 0 Refills Prov: Lana Lemus MD 10/13/16 Disposition: DISCHARGE HOME Condition: Stable Lana Lemus MD Oct 12, 2016 22:38
[2016-10-12 23:21] VITALS: BP 126/72; PULSE 101; RESP 18; O2SAT 95
[2016-10-12 23:30] LABS: AUTOMATED NEUTROPHIL # 4.3 TH/MM3 (1.8-7.7); BASOPHIL # 0.1 TH/MM3 (0-0.2); BLOOD, URINE NEG (NEG); COMMENT (UR) CULT NOT INDICATED; CULTURE IF INDICATED CULT NOT INDICATED; EOSINOPHIL # 0.2 TH/MM3 (0-0.4); EOSINOPHIL % 2.9 % (0.0-4.0); GLUCOSE,URINE 1000 mg/dL (NEG); HEMATOCRIT 42.7 % (39.0-51.0); HEMO FLAGS DIFF FINAL; KETONE, URINE TRACE mg/dL (NEG); LYMPH % 26.5 % (9.0-44.0); LYMPHOCYTE # 1.9 TH/MM3 (1.0-4.8); MEAN CELL VOLUME 87.7 FL (80.0-100.0); MEAN CORPUSCULAR HGB CONC 34.2 % (32.0-36.0); MONO % 9.9 % (0.0-8.0); MUCUS URINE FEW /lpf (OCC); NEUT % 59.7 % (16.0-70.0); NITRITE,URINE NEG (NEG); PH, URINE 5.5 (5.0-8.5); PLATELET COUNT 133 TH/MM3 (150-450); RED BLOOD COUNT 4.87 MIL/MM3 (4.50-5.90); RED CELL DISTRIBUTION WIDTH 14.7 % (11.6-17.2); RENAL EPITHELIAL CELLS <1 /hpf; SQUAMOUS EPITHELIAL CELL URINE 6 /hpf (0-5); TRANSITIONAL EPI CELLS, URINE <1 /hpf; URINE COLOR YELLOW (YELLW/STRAW); WHITE BLOOD COUNT 7.2 TH/MM3 (4.0-11.0)
[2016-10-12 23:43] LABS: BICARBONATE 25.1 MEQ/L (21.0-32.0); MAGNESIUM 1.9 MG/DL (1.5-2.5)
[2016-10-12 23:46] LABS: POTASSIUM 3.9 MEQ/L (3.5-5.1)
[2016-10-13 00:15] LABS: CKMB 5.2 NG/ML (0.5-3.6)
[2016-10-13] MEDS ORDERED: HYDR-3533 PO (00:17)
[2016-10-13 00:29] VITALS: BP 129/56; PULSE 104; RESP 18; O2SAT 95
== END 2016-10-13 00:48 | disposition home or self-care (01) ==
LOC: NEPC 20:36
DX: E11.49 Type 2 diabetes mellitus with other diabetic neurological complication (principal); I10 Essential (primary) hypertension; E78.5 Hyperlipidemia, unspecified; M06.9 Rheumatoid arthritis, unspecified; G47.30 Sleep apnea, unspecified; Z79.4 Long term (current) use of insulin; Z79.82 Long term (current) use of aspirin; Z86.2 Personal history of diseases of the blood and blood-forming organs and certain disorders involving the immune mechanism; Z87.39 Personal history of other diseases of the musculoskeletal system and connective tissue; Z86.79 Personal history of other diseases of the circulatory system; Z85.038 Personal history of other malignant neoplasm of large intestine; Z87.2 Personal history of diseases of the skin and subcutaneous tissue
CPT/HCPCS: 80048; 81001; 82550; 82552; 83735; 85025; 85652; 96374; 99284; J1885

== ENCOUNTER 2017-06-04 13:10 | Observation (INO) | payer OTHER ==
[2017-06-04] VITALS (8 sets, daily range): BP systolic 103–154; BP diastolic 50–70; PULSE 88–109; RESP 12–20; TEMP 97–98.2; O2SAT 96–97
[~2017-06-04 13:10] MED LIST changes: -GABA100C4 PO; +HYDR-3533 PO
[2017-06-04] MEDS ORDERED: SODIUM CHLORIDE 0.9% FLUSH 10 ML FLUSH IVF PRN ×2 (14:00→16:15)
[2017-06-04 14:26] LABS: AUTOMATED NEUTROPHIL # 4.3 TH/MM3 (1.8-7.7); BASOPHIL % 0.5 % (0.0-2.0); EOSINOPHIL # 0.1 TH/MM3 (0-0.4); HEMATOCRIT 43.7 % (39.0-51.0); LYMPH % 16.3 % (9.0-44.0); LYMPHOCYTE # 0.9 TH/MM3 (1.0-4.8); MEAN CELL VOLUME 89.5 FL (80.0-100.0); MEAN CORPUSCULAR HEMOGLOBIN 30.6 PG (27.0-34.0); MEAN CORPUSCULAR HGB CONC 34.2 % (32.0-36.0); MEAN PLATELET VOLUME 7.2 FL (7.0-11.0); MONO % 7.5 % (0.0-8.0); MONOCYTE # 0.4 TH/MM3 (0-0.9); NEUT % 74.7 % (16.0-70.0); PLATELET COUNT 102 TH/MM3 (150-450); RED BLOOD COUNT 4.89 MIL/MM3 (4.50-5.90); RED CELL DISTRIBUTION WIDTH 14.9 % (11.6-17.2); WHITE BLOOD COUNT 5.8 TH/MM3 (4.0-11.0)
[2017-06-04 14:47] LABS: ALBUMIN 3.9 GM/DL (3.4-5.0); ALT (GPT) 53 U/L (12-78); AST (GOT) 53 U/L (15-37); BICARBONATE 23.1 MEQ/L (21.0-32.0); BLOOD UREA NITROGEN 20 MG/DL (7-18); CALCIUM 9.5 MG/DL (8.5-10.1); CHLORIDE 103 MEQ/L (98-107); GLOMERULAR FILTRATION RATE 57 ML/MIN (>89); GLUCOSE,RANDOM 227 MG/DL (74-106); SODIUM (NA) 135 MEQ/L (136-145)
[2017-06-04 14:50] LABS: ALKALINE PHOSPHATASE 122 U/L (45-117); TOTAL BILIRUBIN ADULT 1.1 MG/DL (0.2-1.0); TROPONIN I LESS THAN 0.02 NG/ML (0.02-0.05)
[2017-06-04] MEDS ORDERED: ASPIRIN 81 MG CHEW TAB PO ONE (16:15)
--- NOTE | 2017-06-04 16:25 | PD ---
HPI Chief Complaint: Cardiac Complaint Time Seen by Provider: 15:57 Travel History International Travel<30 days: No Contact w/Intl Traveler<30days: No Traveled to known affect area: No History of Present Illness HPI 57-year-old male presents to the emergency department for evaluation of midsternal chest pain that has been intermittent since approximately 1030 this morning. Patient has past medical history of DM, sleep apnea, nonobstructive CAD seen on catheterization in 2014. Patient last had stress test on 11/18/15 which showed small fixed inferior wall perfusion abnormality, no ischemia, risk category low. He states he has not had any stress test or cardiac catheterization since. Patient states he has not followed with a registered nurse practitioner. Patient states that he also has had presyncope today and feels lightheaded. He denies any syncope. Patient states he has had approximately 3-4 episodes of lightheadedness. Patient states he vomited last night, but has not vomited since. He denies any fevers or headaches. He states he does feel short of breath. He denies any abdominal pain. No leg edema. No recent surgery or travel. No history DVT or PE. No hemoptysis. Patient denies any exacerbating or alleviating factors. He states at this time he is chest pain-free. Patient states he took aspirin 81 mg this morning. Moderate severity. PFSH Past Medical History Hx Anticoagulant Therapy: Yes (aspirn) Anemia: Yes Arthritis: Yes Autoimmune Disease: No Blood Disorders: No Anxiety: No Depression: No Heart Rhythm Problems: Yes (A-fib ) Cancer: Yes (colon cancer- resection) Cardiac Catheterization: Yes Cardiovascular Problems: Yes High Cholesterol: Yes Chemotherapy: No Chest Pain: Yes Congestive Heart Failure: No Cerebrovascular Accident: No Cystic Fibrosis: No Diabetes: Yes Diminished Hearing: No Endocrine: Yes Gastrointestinal Disorders: Yes (COLON CA) Genitourinary: No Heparin Induced Thrombocytopen: No Hypertension: No Immune Disorder: No Implanted Vascular Access Dvce: No Insomnia: Yes Musculoskeletal: Yes (arthritis) Neurologic: No Psychiatric: No Reproductive: No Respiratory: Yes (SLEEP APNEA) Integumentary: Yes (PSORIASIS) Radiation Therapy: No Sleep Apnea: Yes (CPAP uses nightly) Thyroid Disease: No Past Surgical History Abdominal Surgery: Yes (COLON RESECTION) Cardiac Surgery: Yes (cardiac cath no stents) Ear Surgery: No Endocrine Surgery: No Eye Surgery: No Genitourinary Surgery: No Neurologic Surgery: No Oral Surgery: Yes (tonsillectomy) Thoracic Surgery: No Tonsillectomy: Yes Other Surgery: Yes (DEVIATED SEPTUM) Social History Alcohol Use: No Tobacco Use: No Substance Use: No Allergies-Medications (Allergen,Severity, Reaction): Coded Allergies: No Known Allergies (Unverified , 10/12/16) Reported Meds & Prescriptions Reported Meds & Active Scripts Active Lortab (Hydrocodone-Acetaminophen) 5-325 Mg Tab 1 Tab PO Q6H PRN Valacyclovir (Valacyclovir HCl) 1 Gm Tab 1,000 Mg PO TID Reported Effexor XR 24 HR (Venlafaxine HCl) 150 Mg Cap 150 Mg PO DAILY Simvastatin 40 Mg Tab 40 Mg PO HS Protonix (Pantoprazole Sodium) 40 Mg Tab 40 Mg PO DAILY Metoprolol Tartrate 25 Mg Tab 25 Mg PO BID Magnesium Oxide 400 Mg Cap PO BID Metformin (Metformin HCl) 1,000 Mg Tab 1,000 Mg PO BID With meals Lantus Inj (Insulin Glargine) 100 Unit/Ml Inj 100 Units SQ BID Novolog Inj (Insulin Aspart) 100 Unit/Ml Inj 20 Units SQ BIDAC D3 (Cholecalciferol) 2,000 Unit Tab 3,000 PO DAILY Aspir-81 (Aspirin) 81 Mg Tabdr Review of Systems Except as stated in HPI: all other systems reviewed are Neg Physical Exam Narrative GENERAL: Well-nourished, well-developed male patient, afebrile SKIN: Focused skin assessment warm/dry. HEAD: Normocephalic. Atraumatic. EYES: No scleral icterus. No injection or drainage. NECK: Supple, trachea midline. No JVD or lymphadenopathy. CARDIOVASCULAR: Regular rate and rhythm without murmurs, gallops, or rubs. Bilateral radial and pedal pulses 2+ RESPIRATORY: Breath sounds equal bilaterally. No accessory muscle use. Lung sounds are clear to auscultation. GASTROINTESTINAL: Abdomen soft, non-tender, nondistended. MUSCULOSKELETAL: No cyanosis, or edema. BACK: Nontender without obvious deformity. No CVA tenderness. Data Data Last Documented VS Vital Signs Date Time Temp Pulse Resp B/P (MAP) Pulse Ox O2 Delivery O2 Flow Rate FiO2 06/04/17 17:45 105 15 110/59 (76) 06/04/17 16:13 96 Room Air 06/04/17 13:46 97.0 Orders Orders Electrocardiogram (06/04/17 13:47) Complete Blood Count With Diff (06/04/17 13:47) Comprehensive Metabolic Panel (06/04/17 13:47) Troponin I (06/04/17 13:47) Ecg Monitoring (06/04/17 13:47) Iv Access Insert/Monitor (06/04/17 13:47) Oximetry (06/04/17 13:47) Sodium Chloride 0.9% Flush (Ns Flush) (06/04/17 14:00) Electrocardiogram (06/04/17 16:09) Ckmb (Isoenzyme) Profile (06/04/17 16:09) Magnesium (Mg) (06/04/17 16:09) Prothrombin Time / Inr (Pt) (06/04/17 16:09) Act Partial Throm Time (Ptt) (06/04/17 16:09) Chest, Single Ap (06/04/17 16:09) Bilateral Bp Monitoring (06/04/17 16:09) Oxygen Administration (06/04/17 16:09) Aspirin Chew (Aspirin Chew) (06/04/17 16:15) Sodium Chloride 0.9% Flush (Ns Flush) (06/04/17 16:15) D-Dimer (06/04/17 16:09) Sodium Chlor 0.9% 1000 Ml Inj (Ns 1000 M (06/04/17 16:30) Orthostatic Vital Signs (06/04/17 16:25) CKMB (06/04/17 16:22) CKMB% (06/04/17 16:22) Sodium Chlorid 0.9% 500 Ml Inj (Ns 500 M (06/04/17 18:00) Admit Order (Ed Use Only) (06/04/17 17:51) Labs Laboratory Tests Test 06/04/17 14:02 06/04/17 16:22 White Blood Count 5.8 TH/MM3 Red Blood Count 4.89 MIL/MM3 Hemoglobin 15.0 GM/DL Hematocrit 43.7 % Mean Corpuscular Volume 89.5 FL Mean Corpuscular Hemoglobin 30.6 PG Mean Corpuscular Hemoglobin Concent 34.2 % Red Cell Distribution Width 14.9 % Platelet Count 102 TH/MM3 Mean Platelet Volume 7.2 FL Neutrophils (%) (Auto) 74.7 % Lymphocytes (%) (Auto) 16.3 % Monocytes (%) (Auto) 7.5 % Eosinophils (%) (Auto) 1.0 % Basophils (%) (Auto) 0.5 % Neutrophils # (Auto) 4.3 TH/MM3 Lymphocytes # (Auto) 0.9 TH/MM3 Monocytes # (Auto) 0.4 TH/MM3 Eosinophils # (Auto) 0.1 TH/MM3 Basophils # (Auto) 0.0 TH/MM3 CBC Comment DIFF FINAL Differential Comment Blood Urea Nitrogen 20 MG/DL Creatinine 1.30 MG/DL Random Glucose 227 MG/DL Total Protein 9.0 GM/DL Albumin 3.9 GM/DL Calcium Level 9.5 MG/DL Alkaline Phosphatase 122 U/L Aspartate Amino Transf (AST/SGOT) 53 U/L Alanine Aminotransferase (ALT/SGPT) 53 U/L Total Bilirubin 1.1 MG/DL Sodium Level 135 MEQ/L Potassium Level 4.4 MEQ/L Chloride Level 103 MEQ/L Carbon Dioxide Level 23.1 MEQ/L Anion Gap 9 MEQ/L Estimat Glomerular Filtration Rate 57 ML/MIN Troponin I LESS THAN 0.02 NG/ML Prothrombin Time 11.3 SEC Prothromb Time International Ratio 1.1 RATIO Activated Partial Thromboplast Time 25.7 SEC D-Dimer Quantitative (PE/DVT) 0.19 MG/L FEU Magnesium Level 1.9 MG/DL Total Creatine Kinase 216 U/L Creatine Kinase MB 5.4 NG/ML MDM Medical Decision Making Medical Screen Exam Complete: Yes Emergency Medical Condition: Yes Medical Record Reviewed: Yes Interpretation(s) Last Impressions Chest X-Ray 06/04/17 1609 Signed Impressions: Service Date/Time: Sunday, June 04, 2017 16:20 - CONCLUSION: No acute disease. Martínez Foss MD FACR Differential Diagnosis ACS versus chest wall pain versus electrolyte abnormality versus pneumonia versus pneumothorax versus DVT Narrative Course 57-year-old male presents to the emergency department for evaluation of chest pain that has been intermittent since this morning. EKG shows sinus tachycardia , heart rate 106, no acute ST changes./INR, d-dimer, chest x-ray are ordered and pending. Patient is given aspirin 81 mg p.o. in addition to his aspirin he took earlier. Patient is given normal saline 1 L IV bolus. Orthostatic vital signs are ordered and pending. CBC shows no acute abnormality. CMP shows BUN 20, glucose 227. CK is 216. Troponin is less than 0.02. Coags are unremarkable. D-dimer is 0.19. Chest x- ray shows no acute disease. Patient is given additional 500 mg saline bolus for mild orthostatic vital signs. He will be admitted to the chest pain center for further evaluation and disposition. The patient agrees to this Diagnosis Primary Impression: Chest pain Qualified Codes: R07.9 - Chest pain, unspecified Admitting Information Admitting Physician Requests: Sunitha Love Jun 04, 2017 16:25
[2017-06-04] MEDS ORDERED: SODIUM CHLOR 0.9% 1000 ML INJ 1,000 ML IV ONE (16:30)
--- NOTE | 2017-06-04 16:34 | RADRPT ---
EXAM DATE/TIME: 06/04/2017 16:20 [place] COMPARISON: CHEST SINGLE AP, December 03, 2015, 10:15. INDICATIONS : Chest pain. MEDICAL HISTORY : Chronic obstructive pulmonary disease. Diabetes mellitus type II. A-fib. SURGICAL HISTORY : None. ENCOUNTER: Initial ACUITY: 1 day PAIN SCORE: 4/10 LOCATION: chest FINDINGS: A single view of the chest demonstrates the lungs to be symmetrically aerated without evidence of mas s, infiltrate or effusion. The cardiomediastinal contours are unremarkable. Osseous structures are intact. CONCLUSION: No acute disease. Martínez Foss MD FACR on June 04, 2017 at 16:32 Board Certified Radiologist. This report was verified electronically.
[2017-06-04 17:04] LABS: INTERNATIONAL NORMALIZED RATIO 1.1 RATIO; PROTHROMBIN TIME - PATIENT 11.3 SEC (9.8-11.6)
[2017-06-04 17:06] LABS: D-DIMER 0.19 MG/L FEU (0.00-0.50)
[2017-06-04 17:14] LABS: MAGNESIUM 1.9 MG/DL (1.5-2.5)
[2017-06-04] MEDS ORDERED: SODIUM CHLORID 0.9% 500 ML INJ 500 ML IV ONE (18:00)
[2017-06-04] MEDS ORDERED: SODIUM CHLORIDE 0.9% FLUSH 10 ML FLUSH IV FLUSH PRN (18:00)
[2017-06-04 19:32] LABS: TROPONIN I LESS THAN 0.02 NG/ML (0.02-0.05)
[2017-06-04] MEDS: SODIUM CHLORIDE 0.9% FLUSH 10 ML FLUSH IV FLUSH SCH (20:08)
[2017-06-04 23:07] LABS: TROPONIN I LESS THAN 0.02 NG/ML (0.02-0.05)
[2017-06-05] VITALS (8 sets, daily range): BP systolic 118–125; BP diastolic 58–68; PULSE 91–99; RESP 17–18; TEMP 96.8–98; O2SAT 94–96
[2017-06-05] MEDS ORDERED: ONDANSETRON HCL 4 MG/2 ML VIAL IV PUSH PRN (07:15)
[2017-06-05] MEDS ORDERED: NITROGLYCERIN 0.4 MG SL 25 TABS/BTL SL PRN (07:15)
[2017-06-05] MEDS ORDERED: ACETAMINOPHEN 500 MG CPLT PO PRN (07:15)
[2017-06-05] MEDS: SODIUM CHLORIDE 0.9% FLUSH 10 ML FLUSH IV FLUSH SCH (08:08)
--- NOTE | 2017-06-05 08:14 | HHI.HP ---
HPI Primary Care Physician Jackelini [facility] Chief Complaint Chest pain History of Present Illness 57-year-old male with history of type 2 diabetes, insulin-dependent, hyperlipidemia, and coronary artery disease presents to emergency room for further evaluation of nonexertional chest pain. Onset yesterday 10 AM. Location substernal. Characterized as a gradual squeeze. Severity moderate. Radiation to right shoulder blade. Duration 2-3 minutes. Associated symptoms included mild dyspnea and "feeling hot." Denies nausea, vomiting, or diaphoresis. No known precipitating or relieving factors. Endorses similar pain in the past although "not as bad as yesterday." Also experienced positional lightheadedness yesterday, although not occurring during chest pain episodes. Currently chest pain free, denying any further chest discomfort episodes since arriving to ER. Uncertain how many episodes of chest discomfort he experienced yesterday. Review of Systems General: Fatigue past week, reporting "no energy." No weakness, fever, chills, recent illness, recent travel, or change in appetite. HEENT: No RICK, no vision changes, no nasal congestion or drainage, no dysphasia CV: As stated above. No current chest pain or pressure. No palpitations, intermittent leg pain, or dizziness. RESP: No SOB, cough, wheeze, recent URI, history of asthma. GI: Nausea and vomiting 2 nights ago, emesis nonbloody coffee ground, nausea and vomiting since resolved. No bowel changes, diarrhea, constipation, pain, distention, melena, or blood in the stool. : No dysuria, urgency, frequency EXT: No lower leg edema, no paraesthesias MS: No discomfort, injury, trauma, or change in ROM NEURO: No difficulty with balance, LOC, motor/sensory deficits PSYCH: History of depression, stable on current medication regimen. Recently , although denies stress with divorce. SKIN: No rashes, no concerning lesions Past Family Social History Allergies: Coded Allergies: No Known Allergies (Unverified Allergy, Unknown, 06/04/17) Past Medical History Hyperlipidemia, depression, type II diabetes insulin dependent, diabetic neuropathy, sleep apnea, coronary artery disease, colon cancer (surgical removed , no chemotherapy required) Past Surgical History Tonsillectomy, colon resection (1999), deviated septum surgery Reported Medications Reported Meds & Active Scripts Active Valacyclovir (Valacyclovir HCl) 1 Gm Tab 1,000 Mg PO TID Effexor XR 24 HR (Venlafaxine HCl) 150 Mg Cap 150 Mg PO DAILY Simvastatin 40 Mg Tab 40 Mg PO HS Magnesium Oxide 400 Mg Cap PO BID Metformin (Metformin HCl) 1,000 Mg Tab 1,000 Mg PO BID With meals Lantus Inj (Insulin Glargine) 100 Unit/Ml Inj 100 Units SQ QHS Novolog Inj (Insulin Aspart) 100 Unit/Ml Inj 20 Units SQ before each meal D3 (Cholecalciferol) 2,000 Unit Tab 3,000 PO DAILY Aspir-81 (Aspirin) 81 Mg Tabdr Active Ordered Medications Current Medications Medications (Trade) Dose Ordered Sig/Myrna Route Start Time Stop Time Status Last Admin (NS Flush) 2 ml UNSCH PRN IV FLUSH 06/04/17 18:00 (NS Flush) 2 ml BID IV FLUSH 06/04/17 21:00 06/05/17 08:08 (Tylenol) 500 mg Q4H PRN PO 06/05/17 07:15 (Zofran Inj) 4 mg Q6H PRN IV PUSH 06/05/17 07:15 (Nitrostat Sl) 0.4 mg Q5M PRN SL 06/05/17 07:15 (Aspirin) 325 mg DAILY PO 06/05/17 09:00 06/05/17 08:08 Family History Noncontributory for early onset cardiovascular disease. Social History Known coronary artery disease, hyperlipidemia or illegal drug use. Former smoker, quit in 1987. Denies any alcohol or illegal drug use. Recently . Endorses a sedentary lifestyle. Works at a local [employer]. Past cardiac testing 11/18/15 Lexiscan-small fixed inferior wall perfusion abnormality. No ischemia. 08/09/14 Cardiac catheterization (Dr Dow) conclusions 1. Moderate three- vessel coronary artery disease with no definite high-grade stenosis. 2. Status post fractional flow reserve measurement of proximal left circumflex and distal right coronary confirming the absence of hemodynamically significant disease in 3 areas. 3. Low normal left ventricular systolic function with estimated ejection fraction of 50%. Physical Exam Vital Signs Vital Signs Date Time Temp Pulse Resp B/P (MAP) Pulse Ox O2 Delivery O2 Flow Rate FiO2 06/05/17 05:57 98.0 99 18 118/62 (80) 96 06/05/17 00:00 96 4/20/18 23:21 98.2 98 18 120/60 (80) 96 06/04/17 23:00 88 06/04/17 20:12 98.2 100 18 120/59 (79) 96 06/04/17 18:53 06/04/17 17:45 105 15 110/59 (76) 06/04/17 17:42 103 14 120/57 (78) 06/04/17 17:40 102 12 136/70 (92) 06/04/17 16:13 103 18 96 Room Air 06/04/17 16:13 102 20 154/66 (95) 96 Room Air 06/04/17 16:13 103 18 96 Room Air 06/04/17 16:13 96 Room Air 06/04/17 13:46 97.0 109 20 103/50 (67) 97 Physical Exam GENERAL: Alert WN, WD, NAD, pleasant, obese, male who appears older than stated age HEAD: NC, AT EYES: Sclera clear CV: RRR, without murmur, rub, gallop, no JVD, S1-S2 no S3-S4. Chest wall nontender with palpation. RESP: Clear lungs throughout bilateral, no crackles, wheeze, rhonchi, symmetrical chest rise, nonlabored, able to speak in full sentences ABD: Soft, NT, ND, no masses, positive bowel tones EXT: Pulses +2x4, no dependent edema MS: Normal tone x4 extremities, nontender, no obvious deformities, full range of motion, right middle digit tip amputated NEURO: CN II through CN XII grossly intact, motor strength 5/5 PSYCH: A+O -3, flat affect, appropriate speech, mood, insight and judgment SKIN: Normal turgor, normal texture, no lesions, no rashes, brisk cap refill, even hair distribution, multiple tattoos Laboratory Laboratory Tests Test 06/04/17 14:02 06/04/17 16:22 06/04/17 18:40 06/04/17 20:50 White Blood Count 5.8 Red Blood Count 4.89 Hemoglobin 15.0 Hematocrit 43.7 Mean Corpuscular Volume 89.5 Mean Corpuscular Hemoglobin 30.6 Mean Corpuscular Hemoglobin Concent 34.2 Red Cell Distribution Width 14.9 Platelet Count 102 Mean Platelet Volume 7.2 Neutrophils (%) (Auto) 74.7 Lymphocytes (%) (Auto) 16.3 Monocytes (%) (Auto) 7.5 Eosinophils (%) (Auto) 1.0 Basophils (%) (Auto) 0.5 Neutrophils # (Auto) 4.3 Lymphocytes # (Auto) 0.9 Monocytes # (Auto) 0.4 Eosinophils # (Auto) 0.1 Basophils # (Auto) 0.0 CBC Comment DIFF FINAL Differential Comment Blood Urea Nitrogen 20 Creatinine 1.30 Random Glucose 227 Total Protein 9.0 Albumin 3.9 Calcium Level 9.5 Alkaline Phosphatase 122 Aspartate Amino Transf (AST/SGOT) 53 Alanine Aminotransferase (ALT/SGPT) 53 Total Bilirubin 1.1 Sodium Level 135 Potassium Level 4.4 Chloride Level 103 Carbon Dioxide Level 23.1 Anion Gap 9 Estimat Glomerular Filtration Rate 57 Troponin I LESS THAN 0.02 LESS THAN 0.02 LESS THAN 0.02 Prothrombin Time 11.3 Prothromb Time International Ratio 1.1 Activated Partial Thromboplast Time 25.7 D-Dimer Quantitative (PE/DVT) 0.19 Magnesium Level 1.9 Total Creatine Kinase 216 201 186 Creatine Kinase MB 5.4 5.0 4.3 Result Diagram: 06/04/17 1402 06/04/17 1402 Imaging Last 48 hours Impressions Chest X-Ray 06/04/17 1609 Signed Impressions: Service Date/Time: Sunday, June 04, 2017 16:20 - CONCLUSION: No acute disease. Martínez Foss MD FACR Course EKG NST, nonspecific T wave Caprini VTE Risk Assessment Caprini VTE Risk Assessment: No/Low Risk (score <= 1) Caprini Risk Assessment Model Point Value = 1 Point Value = 2 Point Value = 3 Point Value = 5 Age 41-60 Minor surgery BMI > 25 kg/m2 Swollen legs Varicose veins or History of unexplained or recurrent spontaneous Oral contraceptives or hormone replacement Sepsis (< 1 month) Serious lung disease, including pneumonia (< 1 month) Abnormal pulmonary function Acute myocardial infarction Congestive heart failure (< 1 month) History of inflammatory bowel disease Medical patient at bed rest Age 61-74 Arthroscopic surgery Major open surgery (> 45 min) Laparoscopic surgery (> 45 min) Malignancy Confined to bed (> 72 hours) Immobilizing plaster cast Central venous access Age >= 75 History of VTE Family history of VTE Factor V Leiden Prothrombin [id number] Lupus anticoagulant Anticardiolipin antibodies Elevated serum homocysteine Heparin-induced thrombocytopenia Other congenital or acquired thrombophilia Stroke (< 1 month) Elective arthroplasty Hip, pelvis, or leg fracture Acute spinal cord injury (< 1 month) Prophylaxis Regimen Total Risk Factor Score Risk Level Prophylaxis Regimen 0-1 Low Early ambulation 2 Moderate Order ONE of the following: *Sequential Compression Device (SCD) *Heparin 5000 units SQ BID 3-4 Higher Order ONE of the following medications: *Heparin 5000 units SQ TID *Enoxaparin/Lovenox 40 mg SQ daily (WT < 150 kg, CrCl > 30 mL/min) *Enoxaparin/Lovenox 30 mg SQ daily (WT < 150 kg, CrCl > 10-29 mL/min) *Enoxaparin/Lovenox 30 mg SQ BID (WT < 150 kg, CrCl > 30 mL/min) AND/OR *Sequential Compression Device (SCD) 5 or more Highest Order ONE of the following medications: *Heparin 5000 units SQ TID (Preferred with Epidurals) *Enoxaparin/Lovenox 40 mg SQ daily (WT < 150 kg, CrCl > 30 mL/min) *Enoxaparin/Lovenox 30 mg SQ daily (WT < 150 kg, CrCl > 10-29 mL/min) *Enoxaparin/Lovenox 30 mg SQ BID (WT < 150 kg, CrCl > 30 mL/min) AND *Sequential Compression Device (SCD) Assessment and Plan Assessment and Plan #1 Chest pain-chest pain center. Ruled out with 3 sets of EKGs, cardiac enzymes , monitor on telemetry overnight. Presenting symptoms suggestive of angina equivalent. Will be seen and evaluated by Dr. Edwin Monsalve. Most likely will proceed with chemical stress testing later this morning. This will be determined after evaluation by vineyard worker. #2 History of hyperlipidemia-continue statin therapy, cardiovascular benefits of therapy reinforced, especially with documented coronary artery disease on cardiac catheterization in 2014. #3 History of type 2 diabetes-hold metformin and home insulin therapies until n.p.o. status lifted, SSI low dose coverage. #4 History of depression-continue venlafaxine Thais Rhodes Jun 05, 2017 08:14
[2017-06-05] MEDS ORDERED: ASPIRIN 325 MG TAB PO SCH (09:00)
[2017-06-05] MEDS ORDERED: VALA1TAB PO ×2 (09:50→09:51)
[2017-06-05] MEDS ORDERED: REGADENOSON INJ 0.4 MG/5 ML SYR ONE (11:15)
--- NOTE | 2017-06-05 11:42 | EKG ---
Date Performed: 06/04/2017 Time Performed: 21:58:32 PTAGE: 57 years EKG: NONSPECIFIC T-WAVE ABNORMALITY ABNORMAL ECG PREVIOUS TRACING : 06/04/2017 18.19 Since previous tracing, no significant change noted DOCTOR: Edwin Monsalve Interpretating Date/Time 06/05/2017 11:42:08
--- NOTE | 2017-06-05 11:45 | EKG ---
Date Performed: 06/04/2017 Time Performed: 18:19:42 PTAGE: 57 years EKG: Sinus rhythm LOW QRS VOLTAGE IN PRECORDIAL LEADS NONSPECIFIC T-WAVE ABNORMALITY BORDERLINE ECG PREVIOUS TRACING : 06/04/2017 14.00 Since previous tracing, no significant change noted DOCTOR: Edwin Monsalve Interpretating Date/Time 06/05/2017 11:43:45
--- NOTE | 2017-06-05 11:45 | EKG ---
Date Performed: 06/04/2017 Time Performed: 14:00:57 PTAGE: 57 years EKG: SINUS TACHYCARDIA NONSPECIFIC T-WAVE ABNORMALITY ABNORMAL RHYTHM ECG PREVIOUS TRACING : 03/14/2016 19.25 Since previous tracing, no significant change noted DOCTOR: Edwin Monsalve Interpretating Date/Time 06/05/2017 11:44:24
--- NOTE | 2017-06-05 12:48 | RADRPT ---
EXAM DATE/TIME: 06/05/2017 10:40 [facility] COMPARISON: MYOCARDIAL PERF PHARM SPECT, GATED W/EF, November 18, 2015, 8:41. INDICATIONS : Midsternal chest pain with lightheadedness. Angina. DOSE: 35 mCi Tc99m Myoview at stress. 11 mCi Tc99m Myoview at rest. 0.4 mg Lexiscan STRESS SYMPTOMS: Chest pressure and dyspnea. EJECTION FRACTION: 53% MEDICAL HISTORY : Hypercholesterolemia. Hypertension. Diabetes mellitus type 2. SURGICAL HISTORY : CABG Colon resection. Tonsillectomy. Coronary catherization. ENCOUNTER: Initial ACUITY: 1 day PAIN SCALE: 5/10 LOCATION: Midsternal chest TECHNIQUE: The patient underwent pharmacologic stress with infusion of prescribed dose. Continuous ECG tracing was monitored during stress. Gated SPECT imaging was performed after stress and conventional SPECT i maging was performed at rest. The examination was performed on a SPECT/CT scanner, both attenuation and non-corrected datasets were reviewed. FINDINGS: DISTRIBUTION: The maximum perfused segment at stress is in the anterior lateral wall. PERFUSION STUDY: The pattern of perfusion at stress is within normal limits. GATED STUDY: There is intact wall motion and thickening without hypokinetic or dyskinetic segments. CONCLUSION: 1. No fixed or reversible defects to suggest ischemia or infarction. 2. Normal wall motion and calculated ejection fraction. RISK CATEGORY: Low (<1% Annual Mortality Rate) Gabe Woods MD on June 05, 2017 at 12:36 Board Certified Radiologist. This report was verified electronically.
[2017-06-05] MEDS ORDERED: GLUCAGON 1 MG/ML VIAL OTHER PRN (14:30)
[2017-06-05] MEDS ORDERED: DEXTROSE 50% IN WATER 50 ML VIAL(D50) IV PUSH PRN (14:30)
--- NOTE | 2017-06-05 14:34 | HHI.DCPOC ---
Discharge Care Plan Diagnosis: (1) Type 2 diabetes mellitus (2) Chest pain Goals to Promote Your Health * To prevent worsening of your condition and complications * To maintain your health at the optimal level Directions to Meet Your Goals Take your medications as prescribed Follow your dietary instruction Follow activity as directed Keep your appointments as scheduled Take your immunizations and boosters as scheduled If your symptoms worsen call your PCP, if no PCP go to Urgent Care Center or Emergency Room Smoking is Dangerous to Your Health. Avoid second hand smoke Call the 24-hour hour crisis hotline for domestic abuse at Thais Rhodes Jun 05, 2017 14:34
[2017-06-05] MEDS ORDERED: INSULIN ASPART SUPPLEMENTAL SCALE SQ SCH (17:00)
--- NOTE | 2017-06-06 10:57 | TR ---
Date Performed: 06/05/2017 Time Performed: 11:26:19 DOCTOR: Edwin Monsalve DRUG LIST: CLINICAL HISTORY: CHEST PAIN CHEST PAIN REASON FOR TEST: CHEST PAIN REASON FOR ENDING: OBSERVATION: CONCLUSION: COMMENTS: Lexiscan stress test was performed under standard four minute protocol. Radionuclide was injected one minute prior to ending the test. No electrocardiographic abormalities were present t o suggest ischemia. Nuclear imaging and interpretation are pending.
== END 2017-06-05 18:53 | disposition home or self-care (01) ==
LOC: NEPC 13:10 → NEDA 17:53 → NEPFCDU 19:33
PROVIDERS: ADMIT Internal Medicine Cardiovascular Disease; ATTEND Internal Medicine Cardiovascular Disease
DX: R07.89 Other chest pain (principal); R00.0 Tachycardia, unspecified; R94.31 Abnormal electrocardiogram [ECG] [EKG]; R55 Syncope and collapse; R42 Dizziness and giddiness; R11.10 Vomiting, unspecified; R06.02 Shortness of breath; I25.10 Atherosclerotic heart disease of native coronary artery without angina pectoris; E78.00 Pure hypercholesterolemia, unspecified; E11.40 Type 2 diabetes mellitus with diabetic neuropathy, unspecified; J44.9 Chronic obstructive pulmonary disease, unspecified; G47.30 Sleep apnea, unspecified; F32.9 Major depressive disorder, single episode, unspecified; M19.90 Unspecified osteoarthritis, unspecified site; Z79.899 Other long term (current) drug therapy; Z79.4 Long term (current) use of insulin; Z85.038 Personal history of other malignant neoplasm of large intestine
CPT/HCPCS: 71045; 78452; 80053; 82550; 82552; 83735; 84484; 85025; 85379; 85610; 85730; 93005; 93017; 96360; 96361; 99285; A9502; G0378; J2785; J7030; J7040